=== PATIENT | male | born 1995 | race Hispanic/Latino ===

== ENCOUNTER 2017-09-11 18:22 | Emergency (ER) | payer OTHER ==
[2017-09-11] MEDS ORDERED: IBUPROFEN 600 MG TABLET ONE (19:02)
== END 2017-09-11 19:09 | disposition home or self-care (01) ==
LOC: EDH 18:22
DX: S43.492A Other sprain of left shoulder joint, initial encounter (principal); X58.XXXA Exposure to other specified factors, initial encounter; Y93.64 Activity, baseball; Y92.39 Other specified sports and athletic area as the place of occurrence of the external cause; Y99.8 Other external cause status
CPT/HCPCS: 73030